=== PATIENT | male | born 2000 | race Caucasian/White ===

== ENCOUNTER 2023-01-28 21:14 | Emergency (ER) | payer SELFPAY ==
[~2023-01-28] VITALS: Ht 185.4 cm; Wt 83.0 kg
[2023-01-28 21:58] VITALS: BP 132/79; PULSE 83; RESP 18; TEMP 97.9; O2SAT 97
[2023-01-28] MEDS ORDERED: NAPR-54 PO (23:26)
[2023-01-28 23:28] VITALS: O2SAT 97
== END 2023-01-28 23:32 | disposition home or self-care (01) ==
LOC: MED 21:14
DX: S63.592A Other specified sprain of left wrist, initial encounter (principal); W18.30XA Fall on same level, unspecified, initial encounter; Y93.89 Activity, other specified; Y92.89 Other specified places as the place of occurrence of the external cause; Y99.8 Other external cause status
CPT/HCPCS: 73110; 99283